=== PATIENT | female | born 1940 | race Caucasian/White ===

== ENCOUNTER 2019-10-08 16:05 | Inpatient (IN) | payer OTHER ==
--- NOTE | 2019-10-08 16:35 | PDOC ---
Rapid Medical Evaluation Time Seen by Provider: 10/08/19 16:32 Medical Evaluation: Allergies Allergy/AdvReac Type Severity Reaction Status Date / Time No Known Allergies Allergy Verified 10/08/19 16:30 10/08/19 16:34 I have performed a brief in-person evaluation of this patient. The patient presents with a chief complaint of:RUB w/ anorexia and ? sob. H/o NHL remotely Pertinent physical exam findings:Well jacinta, HR 100, afebrile I have ordered the following:ekg/cxr/labs/ua The patient will proceed to the ED for further evaluation. 10/08/19 16:36 Discharge Disposition - Diagnosis Abdominal pain Qualifiers: Abdominal location: right upper quadrant Qualified Code(s): R10.11 - Right upper quadrant pain - Referrals - Patient Instructions - Post Discharge Activity
--- NOTE | 2019-10-08 16:56 | PDOC ---
Attending Attestation - Resident Resident Name: Kimberlee Alcocerhan - ED Attending Attestation I have performed the following: I have examined & evaluated the patient, The case was reviewed & discussed with the resident, I agree w/resident's findings & plan, Exceptions are as noted - HPI HPI: 10/08/19 16:56 78y F hx of HL, non hodgekins lymphoma (in remission) presents with sharp, intermitent R flank pain. Pt woke up this mornig feeling ok, then noticed a sharp R flank pain that lasted for several hours. Notes the pain is improved currently. Denies any sob, cp, f/c, dysuria, frquency, numnbes/tingling/weakness, worsening with exertion, n/v, diarrhea, melena, bpr. NO associated numbness/tingling. never had this pain before. She also notes this pain seems worse when she lies down. On triage note, there was sob noted - pt notes that she sometimes feels sob that major attributes to her asthma, states she does not feel sob now and hadnt recently. exam GENERAL: The patient is awake, alert, and fully oriented, Nontoxic - in no acute distress. HEAD: Normocephalic, atraumatic. EYES: extraocular movements intact, sclera anicteric, conjunctiva clear. ENT: Normal voice, Moist mucous membranes. NECK: Normal range of motion, supple LUNGS: Breath sounds equal, clear to auscultation bilaterally. No wheezes, no rhonchi, no rales. HEART: Regular rate and rhythm, normal S1 and S2 without murmur, rub or gallop. ABDOMEN: Soft, nontender, No guarding, no rebound. No CVA tenderness EXTREMITIES: Normal range of motion, no edema. NEUROLOGICAL: No facial assymetry, Normal speech, PSYCH: Normal mood, normal affect. SKIN: Warm, Dry, normal turgor, Differential for the patient's symptoms is wide and includes possible kidney stones, gallstones, musculoskeletal pain No current abdominal tenderness, no rashes no CVA tenderness. Will obtain blood work, UA, will reassess Will obtain EKG to screen for outside chance of ACS 10/08/19 18:36 - Physicial Exam PE: 10/14/19 17:56 see above - Medical Decision Making 10/08/19 18:37 labs reviewed ua pending 10/08/19 19:00 ct pending signed out to overnight team to review results and dispo pt Heart Score/ECG Review - ECG Impressions Comment:: 10/08/19 17:27 Twelve-lead EKG was performed and reviewed by me. There is normal sinus rhythm with a normal rate. Rate of 89 The axis is normal. The intervals are normal. There is normal R wave progression There are no ST or T wave abnormalities. Impression: Normal twelve-lead EKG Discharge - Discharge Information Problems reviewed: Yes Clinical Impression/Diagnosis: Nephrolithiasis Abdominal pain Qualifiers: Abdominal location: right upper quadrant Qualified Code(s): R10.11 - Right upper quadrant pain Condition: Stable Disposition: HOME - Follow up/Referral - Patient Discharge Instructions - Post Discharge Activity
--- NOTE | 2019-10-08 17:11 | PDOC ---
History of Present Illness - General Chief Complaint: Pain Stated Complaint: RS ABD PAIN/ SOB Time Seen by Provider: 10/08/19 16:32 - History of Present Illness Initial Comments: Yolanda Joe is a 78 y/o female with PMH significant for Non-Hodgkin's Lymphoma (dx 7 years ago, not currently on treatment), HLD, asthma, presenting today with right sided abdominal and flank pain. Reports that this started earlier today. Sharp pain with no radiation. No fever/chills/nausea/vomiting. No diarrhea/dysuria. No chest pain. Pain is intermittent and not currently having pain at present. Reports mild shortness of breath intermittently which is her baseline with asthma. States that the hot weather is making it worse. Not currently short of breath in the ED. SurgHx: tubal ligation Past History - Medical History Allergies/Adverse Reactions: Allergies Allergy/AdvReac Type Severity Reaction Status Date / Time No Known Allergies Allergy Verified 10/08/19 16:30 Home Medications: Ambulatory Orders NK [No Known Home Medication] 10/08/19 Cancer: Yes (non Hodgkins lymph. @ 2013) COPD: No - Psycho-Social/Smoking History Smoking History: Former smoker Have you smoked in the past 12 months: No Information on smoking cessation initiated: No - Substance Abuse Hx (Audit-C & DAST Scrn) How often the patient has a drink containing alcohol: Never Score: In Men: 4 or > Positive; In Women: 3 or > Positive: 0 Screen Result (Pos requires Nsg. Audit-10AR): Negative In the last yr the pt used illegal drug/Rx for NonMed reason: No Score: Yes response is considered Positive: 0 Screen Result (Positive result requires Nsg. DAST-10): Negative Review of Systems - Review of Systems Comments:: GENERAL/CONSTITUTIONAL: No fever or chills. No weakness._ HEAD, EYES, EARS, NOSE AND THROAT: No change in vision. No change in hearing. No sore throat._ CARDIOVASCULAR: No chest pain or shortness of breath_ RESPIRATORY: Denies cough, hemoptysis_ GASTROINTESTINAL: Right abdominal and flank pain. No nausea, vomiting, diarrhea or constipation._ GENITOURINARY: No dysuria, frequency, or change in urination._ MUSCULOSKELETAL: No joint or muscle swelling or pain. No neck or back pain._ SKIN: No rash_ NEUROLOGIC: No headache, vertigo, loss of consciousness, or change in strength/sensation._ ENDOCRINE: No increased thirst. No abnormal weight change_ HEMATOLOGIC/LYMPHATIC: No anemia, easy bleeding, or history of blood clots._ ALLERGIC/IMMUNOLOGIC: No hives or skin allergy._ *Physical Exam - Vital Signs Last Vital Signs Temp Pulse Resp BP Pulse Ox 98 F 100 H 18 112/72 96 10/08/19 16:32 10/08/19 16:32 10/08/19 16:32 10/08/19 16:32 10/08/19 16:32 - Physical Exam GENERAL: Awake, alert, and oriented to person/place/time, in no acute distress_ HEAD: No signs of trauma, normocephalic, atraumatic _ EYES: PERRLA, EOMI, sclera anicteric, conjunctiva clear_ ENT: Hearing grossly normal, nares patent, oropharynx clear without exudates. No uvular deviation. Moist mucosa_ NECK: Normal ROM, supple, no lymphadenopathy, JVD, or masses_ LUNGS: No distress, speaks in full sentences, clear to auscultation bilaterally _ HEART: Regular rate and rhythm, normal S1 and S2, no murmurs appreciated, peripheral pulses normal and equal bilaterally._ ABDOMEN: Soft, obese, nontender, normoactive bowel sounds. No guarding, no rebound. No masses_ EXTREMITIES: Normal inspection, Normal range of motion, no edema. No clubbing or cyanosis_ NEUROLOGICAL: Cranial nerves II through XII grossly intact. Normal speech, normal gait, no focal sensorimotor deficits _ SKIN: Warm, Dry, normal turgor, no rashes or lesions noted_ ED Treatment Course - LABORATORY CBC & Chemistry Diagram: 10/08/19 16:54 10/08/19 16:54 Medical Decision Making - Medical Decision Making 10/08/19 17:10 78F hx of non hodgkin's, asthma, HLD, presenting with right abdominal/flank pain that started today. No fever/chills/infectious symptoms. No nausea/vomiting/diarrhea. -labs -cxr -ekg -trop -lipase 10/08/19 17:28 EKG shows NSR 89 bpm, normal axis, no ST elevation, QTc 469. 10/08/19 18:22 CXR negative for acute chest pathology. 10/08/19 18:36 Labs reviewed. Laboratory Last Values WBC 8.2 K/mm3 (4.0-10.0) 10/08/19 16:54 RBC 4.74 M/mm3 (3.60-5.2) 10/08/19 16:54 Hgb 14.2 GM/dL (10.7-15.3) 10/08/19 16:54 Hct 41.8 % (32.4-45.2) 10/08/19 16:54 MCV 88.1 fl (80-96) 10/08/19 16:54 MCH 29.8 pg (25.7-33.7) 10/08/19 16:54 MCHC 33.9 g/dl (32.0-36.0) 10/08/19 16:54 RDW 13.6 % (11.6-15.6) 10/08/19 16:54 Plt Count 246 K/MM3 (134-434) 10/08/19 16:54 MPV 8.2 fl (7.5-11.1) 10/08/19 16:54 Absolute Neuts (auto) 5.3 K/mm3 (1.5-8.0) 10/08/19 16:54 Neutrophils % 64.8 % (42.8-82.8) 10/08/19 16:54 Lymphocytes % 23.2 % (8-40) 10/08/19 16:54 Monocytes % 9.2 % (3.8-10.2) 10/08/19 16:54 Eosinophils % 1.9 % (0-4.5) 10/08/19 16:54 Basophils % 0.9 % (0-2.0) 10/08/19 16:54 Nucleated RBC % 0 % (0-0) 10/08/19 16:54 Sodium 141 mmol/L (136-145) 10/08/19 16:54 Potassium 4.3 mmol/L (3.5-5.1) 10/08/19 16:54 Chloride 108 mmol/L (98-107) H 10/08/19 16:54 Carbon Dioxide 27 mmol/L (21-32) 10/08/19 16:54 Anion Gap 6 MMOL/L (8-16) L 10/08/19 16:54 BUN 16.6 mg/dL (7-18) 10/08/19 16:54 Creatinine 0.8 mg/dL (0.55-1.3) 10/08/19 16:54 Est GFR (CKD-EPI)AfAm 82.42 10/08/19 16:54 Est GFR (CKD-EPI)NonAf 71.11 10/08/19 16:54 Random Glucose 106 mg/dL (74-106) 10/08/19 16:54 Calcium 9.1 mg/dL (8.5-10.1) 10/08/19 16:54 Total Bilirubin 1.1 mg/dL (0.2-1) H 10/08/19 16:54 AST 20 U/L (15-37) 10/08/19 16:54 ALT 25 U/L (13-61) 10/08/19 16:54 Alkaline Phosphatase 117 U/L (45-117) 10/08/19 16:54 Creatine Kinase 54 U/L (26-192) 10/08/19 16:54 Troponin I < 0.02 ng/ml (0.00-0.05) 10/08/19 16:54 Total Protein 7.4 g/dl (6.4-8.2) 10/08/19 16:54 Albumin 3.7 g/dl (3.4-5.0) 10/08/19 16:54 Lipase 53 U/L (73-393) L 10/08/19 16:54 D/w patient and family. Pt reports that the pain is improved at rest, but worsens when she lays down. Will obtain CT abd/pelv w/o IV contrast. 10/08/19 19:00 UA reviewed. Urine Test Results Urine Color [place] 10/08/19 18:52 Urine Appearance Turbid 10/08/19 18:52 Urine pH 5.0 (5.0-8.0) 10/08/19 18:52 Ur Specific [place] 1.016 (1.010-1.035) 10/08/19 18:52 Urine Protein 1+ (NEGATIVE) H 10/08/19 18:52 Urine Glucose (UA) Negative (NEGATIVE) 10/08/19 18:52 Urine Ketones Negative (NEGATIVE) 10/08/19 18:52 Urine Blood 3+ (NEGATIVE) H 10/08/19 18:52 Urine Nitrite Negative (NEGATIVE) 10/08/19 18:52 Urine Bilirubin Negative (NEGATIVE) 10/08/19 18:52 Ur Leukocyte Esterase Trace (NEGATIVE) 10/08/19 18:52 Pt s/o to Dr. Geiger. Discharge - Discharge Information Problems reviewed: Yes Clinical Impression/Diagnosis: Nephrolithiasis Abdominal pain Qualifiers: Abdominal location: right upper quadrant Qualified Code(s): R10.11 - Right upper quadrant pain Condition: Stable - Follow up/Referral - Patient Discharge Instructions - Post Discharge Activity
[2019-10-08 17:15] LABS: BASO % 0.9 % (0-2.0); EOS % 1.9 % (0-4.5); HEMATOCRIT 41.8 % (32.4-45.2); HEMOGLOBIN 14.2 GM/dL (10.7-15.3); LYMPH % 23.2 % (8-40); MCH 29.8 pg (25.7-33.7); MCHC 33.9 g/dl (32.0-36.0); MEAN CELL VOLUME 88.1 fl (80-96); MEAN PLT VOLUME 8.2 fl (7.5-11.1); MONO % 9.2 % (3.8-10.2); NEUT % 64.8 % (42.8-82.8); PLATELET COUNT 246 K/MM3 (134-434); RBC 4.74 M/mm3 (3.60-5.2); RDW 13.6 % (11.6-15.6); WHITE BLOOD COUNT 8.2 K/mm3 (4.0-10.0)
[2019-10-08 17:41] LABS: ALBUMIN 3.7 g/dl (3.4-5.0); ALK PHOS 117 U/L (45-117); ANION GAP 6 MMOL/L (8-16); BILIRUBIN,TOTAL 1.1 mg/dL (0.2-1); BLOOD UREA NITROGEN 16.6 mg/dL (7-18); CALCIUM 9.1 mg/dL (8.5-10.1); CHLORIDE 108 mmol/L (98-107); CO2 27 mmol/L (21-32); CREATININE 0.8 mg/dL (0.55-1.3); GLUCOSE,RANDOM 106 mg/dL (74-106); LIPASE 53 U/L (73-393); POTASSIUM 4.3 mmol/L (3.5-5.1); SGOT/AST 20 U/L (15-37); SGPT/ALT 25 U/L (13-61); SODIUM 141 mmol/L (136-145); TOT PROT 7.4 g/dl (6.4-8.2)
[2019-10-08] MEDS ORDERED: ACETAMINOPHEN 1000 MG/100 ML VIAL (NON FORMULARY) IVPB ONE (18:38)
[2019-10-08] MEDS ORDERED: ACETAMINOPHEN INJECTION 100 ML IVPB ONE (18:56)
[2019-10-08 19:17] LABS: EPI CELLS >36 /uL (0-25.1); HYALINE CASTS 3 /uL (0-3.1); URINE APPEARANCE TURBID; URINE BACTERIA 124 /uL (0-1359); URINE BILIRUBIN NEGATIVE (NEGATIVE); URINE COLOR ORANGE; URINE GLUCOSE (UA) NEGATIVE (NEGATIVE); URINE KETONE NEGATIVE (NEGATIVE); URINE LEUK ESTERASE TRACE (NEGATIVE); URINE NITRITE NEGATIVE (NEGATIVE); URINE PROTEIN 1+ (NEGATIVE); URINE RBC 737 /uL (0-23.9); URINE WBC 47 /uL (0-25.8)
[2019-10-08] MEDS ORDERED: CEFTRIAXONE 1 GM in DEXTROSE 5%-WATER - 50 ML IVPB ONE (19:25)
[2019-10-08] MEDS ORDERED: SODIUM CHLORIDE 0.9% 500 ML INFUS.BAG IV ONE (19:41)
--- NOTE | 2019-10-08 19:42 | PDOC ---
*Physical Exam - Vital Signs Last Vital Signs Temp Pulse Resp BP Pulse Ox 98 F 100 H 18 112/72 96 10/08/19 16:32 10/08/19 16:32 10/08/19 16:32 10/08/19 16:32 10/08/19 16:32 ED Treatment Course - LABORATORY CBC & Chemistry Diagram: 10/08/19 16:54 10/08/19 16:54 - ADDITIONAL ORDERS Additional order review: Laboratory Results 10/08/19 10/08/19 18:52 16:54 Sodium 141 Potassium 4.3 Chloride 108 H Carbon Dioxide 27 Anion Gap 6 L BUN 16.6 Creatinine 0.8 Est GFR (CKD-EPI)AfAm 82.42 Est GFR (CKD-EPI)NonAf 71.11 Random Glucose 106 Calcium 9.1 Total Bilirubin 1.1 H AST 20 ALT 25 Alkaline Phosphatase 117 Creatine Kinase 54 Troponin I < 0.02 Total Protein 7.4 Albumin 3.7 Lipase 53 L Urine Color [place] Urine Appearance Turbid Urine pH 5.0 Ur Specific [place] 1.016 Urine Protein 1+ H Urine Glucose (UA) Negative Urine Ketones Negative Urine Blood 3+ H Urine Nitrite Negative Urine Bilirubin Negative Urine Urobilinogen 1.0 Ur Leukocyte Esterase Trace Urine WBC (Auto) 47 Urine RBC (Auto) 737 Urine Casts (Auto) 3 U Epithel Cells (Auto) >36 Urine Bacteria (Auto) 124 10/08/19 16:54 RBC 4.74 MCV 88.1 MCHC 33.9 RDW 13.6 MPV 8.2 Neutrophils % 64.8 Lymphocytes % 23.2 Monocytes % 9.2 Eosinophils % 1.9 Basophils % 0.9 - Medications Given in the ED: ED Medications Discontinued Medications Generic Name Dose Route Start Last Admin Trade Name Negrita PRN Reason Stop Dose Admin Acetaminophen 1,000 mg 10/08/19 18:38 10/08/19 19:12 Ofirmev Injection - IVPB 10/08/19 18:39 1,000 mg ONCE ONE Administration Medical Decision Making - Medical Decision Making 10/08/19 19:40 I received pt on signout and she has flank pain. UA comes back with bacteria RBC, WBC, but no nitrites and no leuks. Pt has no fever and no WBC elevation She will be gong for spiral CT scan 10/08/19 20:51 Patient Name: ADONAY CABRERA THIS IS A PRELIMINARY REPORT FROM [facility] EXAM: CT abdomen and pelvis without contrast IMAGES:160 DATE OF EXAM: 2019-10-08 20:10:48 REASON FOR EXAM: Kidney stone COMPARISON: None Findings: Mild atelectasis and scarring in lung bases. 2 mm granuloma in the lingula. No pleural effusions. Small hiatal hernia. Hepatic steatosis. Distended gallbladder, usually from fasting state. Pancreatic atrophy. Adrenal glands and spleen are grossly unremarkable. *Bilateral perinephric edema and renal cortical scarring. 2 mm calculus at the right ureteropelvic junction with right-sided hydronephrosis. Superimposed bilateral parapelvic renal cysts. Punctate 1 mm left intrarenal calculi. No AAA. No evidence for diverticulitis, appendicitis, small bowel obstruction, free fluid, or free air. A few nonspecific enlarged right lower quadrant mesenteric lymph nodes 10/08/19 20:52 Pt has an obstructing stone with right hydronephrosis. She has perinephric edema and scarring. She will be admitted for eval by urology. 10/08/19 21:19 Pt and her daughter are in agreement with this plan Pt's PMD is Dr. Mansfield. Discharge - Discharge Information Problems reviewed: Yes Clinical Impression/Diagnosis: Abdominal pain Qualifiers: Abdominal location: right upper quadrant Qualified Code(s): R10.11 - Right upper quadrant pain - Follow up/Referral - Patient Discharge Instructions - Post Discharge Activity
[2019-10-08] MEDS ORDERED: CEFTRIAXONE 1 GM/50 ML BAG ONE (21:02)
[2019-10-08] MEDS ORDERED: TAMSULOSIN HCL 0.4 MG CAP PO ONE (21:02)
[2019-10-08] MEDS ORDERED: TAMSULOSIN HCL 0.4 MG CAP ONE (21:15)
--- NOTE | 2019-10-08 21:38 | PDOC ---
*Physical Exam - Vital Signs Last Vital Signs Temp Pulse Resp BP Pulse Ox 98 F 100 H 18 112/72 96 10/08/19 16:32 10/08/19 16:32 10/08/19 16:32 10/08/19 16:32 10/08/19 16:32 ED Treatment Course - LABORATORY CBC & Chemistry Diagram: 10/08/19 16:54 10/08/19 16:54 - ADDITIONAL ORDERS Additional order review: Laboratory Results 10/08/19 10/08/19 18:52 16:54 Sodium 141 Potassium 4.3 Chloride 108 H Carbon Dioxide 27 Anion Gap 6 L BUN 16.6 Creatinine 0.8 Est GFR (CKD-EPI)AfAm 82.42 Est GFR (CKD-EPI)NonAf 71.11 Random Glucose 106 Calcium 9.1 Total Bilirubin 1.1 H AST 20 ALT 25 Alkaline Phosphatase 117 Creatine Kinase 54 Troponin I < 0.02 Total Protein 7.4 Albumin 3.7 Lipase 53 L Urine Color [place] Urine Appearance Turbid Urine pH 5.0 Ur Specific [place] 1.016 Urine Protein 1+ H Urine Glucose (UA) Negative Urine Ketones Negative Urine Blood 3+ H Urine Nitrite Negative Urine Bilirubin Negative Urine Urobilinogen 1.0 Ur Leukocyte Esterase Trace Urine WBC (Auto) 47 Urine RBC (Auto) 737 Urine Casts (Auto) 3 U Epithel Cells (Auto) >36 Urine Bacteria (Auto) 124 10/08/19 16:54 RBC 4.74 MCV 88.1 MCHC 33.9 RDW 13.6 MPV 8.2 Neutrophils % 64.8 Lymphocytes % 23.2 Monocytes % 9.2 Eosinophils % 1.9 Basophils % 0.9 - RADIOLOGY Radiology Studies Ordered: Category Date Time Status SPIRAL- RENAL-STONE CT [CT] Stat CT Scan 10/08/19 19:26 Taken - Medications Given in the ED: ED Medications Discontinued Medications Generic Name Dose Route Start Last Admin Trade Name Freq PRN Reason Stop Dose Admin Acetaminophen 1,000 mg 10/08/19 18:38 10/08/19 19:12 Ofirmev Injection - IVPB 10/08/19 18:39 1,000 mg ONCE ONE Administration Ceftriaxone Sodium 1 gm/ 50 mls @ 100 mls/hr 10/08/19 19:25 10/08/19 21:29 Dextrose IVPB 10/08/19 19:54 100 mls/hr ONCE ONE Administration Sodium Chloride 500 ml 10/08/19 19:41 10/08/19 21:29 Normal Saline - IV 10/08/19 19:42 500 ml ONCE ONE Administration Tamsulosin HCl 0.4 mg 10/08/19 21:02 10/08/19 21:29 Flomax - PO 10/08/19 21:03 0.4 mg ONCE ONE Administration Medical Decision Making - Medical Decision Making Sign out was given by Dr. Alcocer. Patient was reassessed and in a stable condition CBC, CMP show no concerning problem. UA reavealed positive 3+ blood CT spiral scan for kidney stone revealed 2 mm stone, with right hydroneprosis. MBMD were initated. Waiting to talk to design center consultant. Decision to admit was initiated. Discharge - Discharge Information Problems reviewed: Yes Clinical Impression/Diagnosis: Abdominal pain Qualifiers: Abdominal location: right upper quadrant Qualified Code(s): R10.11 - Right upper quadrant pain Condition: Good - Admission Yes - Follow up/Referral - Patient Discharge Instructions - Post Discharge Activity
--- NOTE | 2019-10-08 22:23 | PN ---
Teaching Attending Note Name of Resident: Francisco Landers ATTENDING PHYSICIAN STATEMENT I saw and evaluated the patient. I reviewed the resident's note and discussed the case with the resident. I agree with the resident's findings and plan as documented. SUBJECTIVE: Patient is a 78 year old woman with a PMH of Non-Hodgkin's lymphoma (in remissi on), HLD and Asthma who presents with sharp, intermittent right flank pain. Patient woke up this morning feeling okay, then noticed a sharp right flank pain that lasted for several hours. Pain is improved subsequently. Denies any active SOB, chest pain, fever, chills, dysuria, frequency, numbness, tingling, weakness, hematochezia, diarrhea or melena. No history of similar pain in the past. She also notes this pain seems worse when she lies down. Denies alcohol, tobacco or illicit drug use. No sick contacts or recent travels. Family history is unremarkable. OBJECTIVE: Alert Vital Signs Period Temp Pulse Resp BP Sys/[place] Pulse Ox Last 24 Hr 98 F 100 18 112/72 96 HEENT: No Jaundice, eye redness or discharge, PERRLA, EOMI. Normocephalic, atraumatic. External ears are normal and hearing is grossly intact. No nasal discharge. Neck: Supple, nontender. No palpable adenopathy or thyromegaly. No JVD Chest: Good effort. Clear to auscultation and percussion. Heart: Regular. No S3, rub or murmur Abdomen: Not distended, soft, nontender and no HSM. No rebound or guarding. Normal bowel sounds. Ext: Peripheral pulses intact. No leg edema. Skin: Warm and dry. No petechiae, rash or ecchymosis. Neuro: Alert. Oriented x3. CN 2-12 grossly intact. Sensation grossly intact in all four extremities and DTR are symmetric. Psych: Appropriate mood and affect. Good insight. Home Medications Medication Instructions Recorded NK [No Known Home Medication] 10/08/19 Abnormal Lab Results 10/08/19 10/08/19 16:54 18:52 Chloride 108 H Anion Gap 6 L Total Bilirubin 1.1 H Lipase 53 L Urine Protein 1+ H Urine Blood 3+ H Current Medications Generic Name Dose Route Start Last Admin Trade Name Freq PRN Reason Stop Dose Admin Heparin Sodium (Porcine) 5,000 unit 10/09/19 10:00 Heparin - SQ BID [facility] Sodium Chloride 1,000 mls @ 50 mls/hr 10/09/19 02:15 Normal Saline - IV 10/10/19 02:19 ASDIR [facility] Ketorolac Tromethamine 15 mg 10/09/19 02:06 Toradol Injection - IVPUSH 10/14/19 02:05 Q8H PRN PAIN LEVEL 6-10 Morphine Sulfate 1 mg 10/09/19 02:06 Morphine Injection - IVPUSH Q4H PRN PAIN LEVEL 7 - 10 Tamsulosin HCl 0.4 mg 10/09/19 02:22 Flomax - PO 10/09/19 02:23 ONCE ONE ASSESSMENT AND PLAN: 1. Right kidney stone/Hydronephrosis - Noncontrast CT scan of abdomen/pelvis report - "Mild atelectasis and scarring in lung bases. 2 mm granuloma in the lingula. No pleural effusions. Small hiatal hernia. Hepatic steatosis. Distended gallbladder, usually from fasting state. Pancreatic atrophy. Adrenal glands and spleen are grossly unremarkable. *Bilateral perinephric edema and renal cortical scarring. 2 mm calculus at the right ureteropelvic junction with right-sided hydronephrosis. Superimposed bilateral parapelvic renal cysts. Punctate 1 mm left intrarenal calculi. No AAA. No evidence for diverticulitis, appendicitis, small bowel obstruction, free fluid, or free air. A few nonspecific enlarged right lower quadrant mesenteric lymph nodes". No acute abnormality on CXR and urine shows hematuria. Will keep her NPO, give IV NS, strain her urine, give Flomax, IV Ceftriaxone, consult Urology and refer to Nephrology for outpatient workup to search for stone disease risk factor. Use IV Ketorolac for pain control. Viral testing for COVID-19 ordered and patient placed on airborne, droplet and contact isolation. EKG shows NSR at 89/minute and QTc [address]-T wave changes. 2. Obesity Counseled on the risks associated with obesity. Will provide patient all the necessary assistance, counseling and positive reinforcement to f acilitate weight loss. Consult manager advanced. 3. DVT prophylaxis - SCD 4. Advance directives - Full code
[2019-10-09] MEDS ORDERED: MORPHINE SULFATE 2 MG/ML VIAL IVPUSH PRN (02:06)
[2019-10-09] MEDS ORDERED: KETOROLAC TROMETHAMINE 15 MG/ML VIAL IVPUSH PRN (02:06)
[2019-10-09] MEDS ORDERED: SODIUM CHLORIDE 1,000 ML IV SCH ×2 (02:15→08:54)
[2019-10-09] MEDS ORDERED: TAMSULOSIN HCL 0.4 MG CAP PO ONE (02:22)
[2019-10-09] MEDS ORDERED: TAMSULOSIN HCL 0.4 MG CAP ONE (05:24)
[2019-10-09 07:17] LABS: HEMATOCRIT 37.1 % (32.4-45.2); HEMOGLOBIN 12.4 GM/dL (10.7-15.3); MCH 29.4 pg (25.7-33.7); MCHC 33.5 g/dl (32.0-36.0); MEAN CELL VOLUME 87.6 fl (80-96); MEAN PLT VOLUME 8.1 fl (7.5-11.1); PLATELET COUNT 201 K/MM3 (134-434); RBC 4.23 M/mm3 (3.60-5.2); RDW 13.5 % (11.6-15.6); WHITE BLOOD COUNT 6.8 K/mm3 (4.0-10.0)
[2019-10-09 07:39] LABS: CALCIUM 8.4 mg/dL (8.5-10.1); MAGNESIUM 2.1 mg/dL (1.8-2.4); PHOSPHOROUS 3.4 mg/dL (2.5-4.9); POTASSIUM 3.7 mmol/L (3.5-5.1)
--- NOTE | 2019-10-09 07:58 | HP ---
CHIEF COMPLAINT: Right flank pain radiating to right groin with anorexia PCP: HISTORY OF PRESENT ILLNESS: 78 year old female patient with past medical history of non-hodgkin's lymphoma in remission, HLD, asthma, who presented to the ED with severe right flank pain and anorexia. The pain began in the morning with sudden onset, and the pain radiates from the right flank to the patient's groin. A U/A found 3+ blood, and a CT A/P found a 2 mm kidney stone with right sided hyrdonephrosis, and renal cortical scarring. After coming to the ED and getting medication, the patient reports that now the pain is significantly reduced with the pain medication, and that the pain is now mostly around her groin area, where before it was higher up in her right flank area. The patient denies nausea/vomiting, fever/chills, shortness of breath, and chest pain. Recent Travel: PAST MEDICAL HISTORY: non-hodgkin's lymphoma in remission, HLD, asthma PAST SURGICAL HISTORY: Social History: Smoking: Alcohol: Drugs: Allergies No Known Allergies Allergy (Verified 10/08/19 16:30) HOME MEDICATIONS: Home Medications Medication Instructions Recorded NK [No Known Home Medication] 10/08/19 REVIEW OF SYSTEMS CONSTITUTIONAL: Absent: fever, chills CARDIOVASCULAR: Absent: chest pain RESPIRATORY: Absent: shortness of breath GASTROINTESTINAL: Absent: abdominal pain, nausea, vomiting, diarrhea, constipation GENITOURINARY: flank pain that radiated to the groin previously, but now mostly groin-area pain Absent: PHYSICAL EXAMINATION Vital Signs - 24 hr 10/08/19 10/08/19 10/09/19 16:32 20:50 06:33 Temperature 98 F 98.6 F 98.3 F Pulse Rate 100 H Pulse Rate [ 66 84 Left Radial] Respiratory 18 19 16 Rate Blood Pressure 112/72 Blood Pressure 122/68 125/61 [Right Arm] O2 Sat by Pulse 96 99 97 Oximetry (%) GENERAL: Awake, alert, and fully oriented, in no acute distress. HEAD: Normal with no signs of trauma. EYES: Extraocular movements intact. No lid lag. EARS, NOSE, THROAT: Ears normal, nares patent, oropharynx clear without exudates. Moist mucous membranes. NECK: Normal range of motion, supple without lymphadenopathy, JVD, or masses. LUNGS: Breath sounds equal, clear to auscultation bilaterally. No wheezes, and no crackles. HEART: Systolic murmur heard best at right sternal border. Regular rate and rhythm, normal S1 and S2. ABDOMEN: Soft, mildly tender on right side to palpation, not distended, normoactive bowel sounds, no guarding, no rebound, no masses. MUSCULOSKELETAL: Normal range of motion at all joints. No bony deformities or tenderness. No CVA tenderness. UPPER EXTREMITIES: 2+ pulses, warm, well-perfused. No cyanosis. No clubbing. No peripheral edema. LOWER EXTREMITIES: 2+ pulses, warm, well-perfused. No calf tenderness. No peripheral edema. NEUROLOGICAL: Normal speech. Normal gait. PSYCHIATRIC: Cooperative. Good eye contact. Appropriate mood and affect. SKIN: Warm, dry, normal turgor, no rashes or lesions noted, normal capillary refill. Laboratory Results - last 24 hr 10/08/19 10/08/19 10/08/19 16:54 16:54 18:52 WBC 8.2 RBC 4.74 Hgb 14.2 Hct 41.8 MCV 88.1 MCH 29.8 MCHC 33.9 RDW 13.6 Plt Count 246 MPV 8.2 Absolute Neuts (auto) 5.3 Neutrophils % 64.8 Lymphocytes % 23.2 Monocytes % 9.2 Eosinophils % 1.9 Basophils % 0.9 Nucleated RBC % 0 Sodium 141 Potassium 4.3 Chloride 108 H Carbon Dioxide 27 Anion Gap 6 L BUN 16.6 Creatinine 0.8 Est GFR (CKD-EPI)AfAm 82.42 Est GFR (CKD-EPI)NonAf 71.11 Random Glucose 106 Calcium 9.1 Total Bilirubin 1.1 H AST 20 ALT 25 Alkaline Phosphatase 117 Creatine Kinase 54 Troponin I < 0.02 Total Protein 7.4 Albumin 3.7 Lipase 53 L Urine Color [place] Urine Appearance Turbid Urine pH 5.0 Ur Specific [place] 1.016 Urine Protein 1+ H Urine Glucose (UA) Negative Urine Ketones Negative Urine Blood 3+ H Urine Nitrite Negative Urine Bilirubin Negative Urine Urobilinogen 1.0 Ur Leukocyte Esterase Trace Urine WBC (Auto) 47 Urine RBC (Auto) 737 Urine Casts (Auto) 3 U Epithel Cells (Auto) >36 Urine Bacteria (Auto) 124 10/09/19 06:15 WBC 6.8 RBC 4.23 Hgb 12.4 Hct 37.1 MCV 87.6 MCH 29.4 MCHC 33.5 RDW 13.5 Plt Count 201 MPV 8.1 Absolute Neuts (auto) Neutrophils % Lymphocytes % Monocytes % Eosinophils % Basophils % Nucleated RBC % Sodium Potassium Chloride Carbon Dioxide Anion Gap BUN Creatinine Est GFR (CKD-EPI)AfAm Est GFR (CKD-EPI)NonAf Random Glucose Calcium Total Bilirubin AST ALT Alkaline Phosphatase Creatine Kinase Troponin I Total Protein Albumin Lipase Urine Color Urine Appearance Urine pH Ur Specific [place] Urine Protein Urine Glucose (UA) Urine Ketones Urine Blood Urine Nitrite Urine Bilirubin Urine Urobilinogen Ur Leukocyte Esterase Urine WBC (Auto) Urine RBC (Auto) Urine Casts (Auto) U Epithel Cells (Auto) Urine Bacteria (Auto) ASSESSMENT/PLAN: 78 year old female patient with past medical history of non-hodgkin's lymphoma in remission, HLD, asthma, who presented to the ED with severe right flank pain and anorexia. 1. Right Nephrolithiasis with Right Hydronephrosis - NPO - IV Fluids - IV Ketorolac - Flomax - Prophylactic IV Ceftriaxone due to the hydronephrosis - Urine strainer with goal of catching the stone and analysing it as an outpatient workup with Urology 2. Renal Cortical Scarring on CT A/P - Nephrology outpatient follow up about the renal cortical scarring 2. Obesity - Patient Access Specialist Consulted DVT PPx - SCDs FULL CODE Visit type - Emergency Visit Emergency Visit: Yes ED Registration Date: 10/08/19 Care time: The patient presented to the Emergency Department on the above date and was hospitalized for further evaluation of their emergent condition. - New Patient This patient is new to me today: Yes Date on this admission: 10/09/19 - Critical Care Critical Care patient: No ATTENDING PHYSICIAN STATEMENT I saw and evaluated the patient. I reviewed the resident's note and discussed the case with the resident. I agree with the resident's findings and plan as documented. SUBJECTIVE: OBJECTIVE: ASSESSMENT AND PLAN:
--- NOTE | 2019-10-09 08:37 | PN ---
Teaching Attending Note Name of Resident: La Pfeiffer ATTENDING PHYSICIAN STATEMENT I saw and evaluated the patient. I reviewed the resident's note and discussed the case with the resident. I agree with the resident's findings and plan as documented. SUBJECTIVE: Patient is feeling better with no acute distress, no nausea or vomiting. OBJECTIVE: Vital Signs Temperature 98.3 F 10/09/19 06:33 Pulse Rate 84 10/09/19 06:33 Respiratory Rate 16 10/09/19 06:33 Blood Pressure 125/61 10/09/19 06:33 O2 Sat by Pulse Oximetry (%) 97 10/09/19 06:33 PE: per resident's note CBCD WBC 6.8 K/mm3 (4.0-10.0) 10/09/19 06:15 RBC 4.23 M/mm3 (3.60-5.2) 10/09/19 06:15 Hgb 12.4 GM/dL (10.7-15.3) 10/09/19 06:15 Hct 37.1 % (32.4-45.2) 10/09/19 06:15 MCV 87.6 fl (80-96) 10/09/19 06:15 MCHC 33.5 g/dl (32.0-36.0) 10/09/19 06:15 RDW 13.5 % (11.6-15.6) 10/09/19 06:15 Plt Count 201 K/MM3 (134-434) 10/09/19 06:15 MPV 8.1 fl (7.5-11.1) 10/09/19 06:15 CMP Sodium 142 mmol/L (136-145) 10/09/19 06:15 Potassium 3.7 mmol/L (3.5-5.1) 10/09/19 06:15 Chloride 109 mmol/L (98-107) H 10/09/19 06:15 Carbon Dioxide 23 mmol/L (21-32) 10/09/19 06:15 Anion Gap 10 MMOL/L (8-16) 10/09/19 06:15 BUN 19.0 mg/dL (7-18) H 10/09/19 06:15 Creatinine 1.0 mg/dL (0.55-1.3) 10/09/19 06:15 Random Glucose 109 mg/dL (74-106) H 10/09/19 06:15 Calcium 8.4 mg/dL (8.5-10.1) L 10/09/19 06:15 Total Bilirubin 1.1 mg/dL (0.2-1) H 10/08/19 16:54 AST 20 U/L (15-37) 10/08/19 16:54 ALT 25 U/L (13-61) 10/08/19 16:54 Alkaline Phosphatase 117 U/L (45-117) 10/08/19 16:54 Total Protein 7.4 g/dl (6.4-8.2) 10/08/19 16:54 Albumin 3.7 g/dl (3.4-5.0) 10/08/19 16:54 CARDIAC ENZYMES Creatine Kinase 54 U/L (26-192) 10/08/19 16:54 Troponin I < 0.02 ng/ml (0.00-0.05) 10/08/19 16:54 Current Medications Generic Name Dose Route Start Last Admin Trade Name Freq PRN Reason Stop Dose Admin Sodium Chloride 1,000 mls @ 50 mls/hr 10/09/19 02:15 10/09/19 05:33 Normal Saline - IV 10/10/19 02:19 50 mls/hr ASDIR GAGE Administration Ketorolac Tromethamine 15 mg 10/09/19 02:06 Toradol Injection - IVPUSH 10/14/19 02:05 Q8H PRN PAIN LEVEL 6-10 Morphine Sulfate 1 mg 10/09/19 02:06 Morphine Sulfate IVPUSH Q4H PRN PAIN LEVEL 7 - 10 Home Medications Medication Instructions Recorded NK [No Known Home Medication] 10/08/[address] scan of abdomen/pelvis report - "Mild atelectasis and scarring in lung bases. 2 mm granuloma in the lingula. No pleural effusions. Small hiatal hernia. Hepatic steatosis. Distended gallbladder, usually from fasting state. Pancreatic atrophy. Adrenal glands and spleen are grossly unremarkable. *Bilateral perinephric edema and renal cortical scarring. 2 mm calculus at the right ureteropelvic junction with right-sided hydronephrosis. Superimposed bilateral parapelvic renal cysts. Punctate 1 mm left intrarenal calculi. No AAA. No evidence for diverticulitis, appendicitis, small bowel obstruction, free fluid, or free air. A few nonspecific enlarged right lower quadrant mesenteric lymph nodes". ASSESSMENT AND PLAN: This patient is 78yof with PMHx of non-hodgkin's lymphoma in remission, HLD, asthma, who presented to the ED with severe right flank pain and anorexia. #Acute right hydronephrosis: due to 2mm calculus at ureteropelvic junction , urology consult Dr Shakila hendricks, monitor creatinine pain control #BL parapelvic renal cysts DVT Px: heparin sq will repeat the US in am
[2019-10-09] MEDS ORDERED: HEPARIN NA (PORCINE) 5,000 UNITS/ML 1ML VIAL SQ SCH (10:00)
[2019-10-09] MEDS ORDERED: KETOROLAC TROMETHAMINE 15 MG/ML VIAL ONE (11:40)
--- NOTE | 2019-10-09 12:26 | CONSULT ---
Consult Consult Specialty:: UROLOGY Reason for Consultation:: Kidney stone - History of Present Illness Chief Complaint: 78 Y/O female patient with past medical history of non-hodgki n's lymphoma in remission, HLD, asthma, who presented to the ED with severe right flank pain and anorexia. The pain began in the morning with sudden onset, and the pain radiates from the right flank to the patient's groin. She denies any previous hx of stone, nocturia 2, frequency 5 no dysuria no gross hematuria. O/E soft lax abd no palpable bladder. mild tender Rt CVA. . A U/A found 3+ blood, and a CT-Scan 2 mm kidney stone with mild right sided hyrdonephrosis, and renal cortical scarring. WBC 6.8 HB 12.4. BUN 19. S.Creat 1.0 - Smoking History Smoking history: Former smoker Have you smoked in the past 12 months: No Home Medications - Allergies Allergies/Adverse Reactions: Allergies Allergy/AdvReac Type Severity Reaction Status Date / Time No Known Allergies Allergy Verified 10/08/19 16:30 - Home Medications Home Medications: Ambulatory Orders NK [No Known Home Medication] 10/08/19 Physical Exam Vital Signs: Vital Signs Temperature 98.3 F 10/09/19 06:33 Pulse Rate 84 10/09/19 06:33 Respiratory Rate 16 10/09/19 06:33 Blood Pressure 125/61 10/09/19 06:33 O2 Sat by Pulse Oximetry (%) 97 10/09/19 06:33 Labs: CBC, BMP 10/09/19 06:15 10/09/19 06:15 Assessment/Plan Rt Renal stone Plan: increase fluid intake IVF Flomax 0.4 mg Daily Ceftriaxone 1 gm daily will do Renal and pelvic U/S Tomorrow if still pain and hydro will do Rt laser and jj stent insertion
--- NOTE | 2019-10-09 15:38 | PN ---
Physical Exam: SUBJECTIVE: Patient seen and examined at bedside.states her pain is resolved. no acute complaints. denies n/v/d. denies dysuria OBJECTIVE: Vital Signs Period Temp Pulse Resp BP Sys/[place] Pulse Ox Last 24 Hr 98 F-98.6 F 66-100 16-19 112-125/61-72 96-99 GENERAL: The patient is awake, alert, and fully oriented, in no acute distress. LUNGS: Breath sounds equal, clear to auscultation bilaterally, no accessory muscle use. HEART: Regular rate and rhythm, S1, S2 + holosystolic murmur ABDOMEN: Soft, nontender, nondistended, normoactive bowel sounds, no guarding EXTREMITIES: 2+ pulses, warm, well-perfused, no edema. SKIN: Warm, dry, normal turgor, no rashes or lesions noted Laboratory Last Values WBC 6.8 K/mm3 (4.0-10.0) 10/09/19 06:15 RBC 4.23 M/mm3 (3.60-5.2) 10/09/19 06:15 Hgb 12.4 GM/dL (10.7-15.3) 10/09/19 06:15 Hct 37.1 % (32.4-45.2) 10/09/19 06:15 MCV 87.6 fl (80-96) 10/09/19 06:15 MCH 29.4 pg (25.7-33.7) 10/09/19 06:15 MCHC 33.5 g/dl (32.0-36.0) 10/09/19 06:15 RDW 13.5 % (11.6-15.6) 10/09/19 06:15 Plt Count 201 K/MM3 (134-434) 10/09/19 06:15 MPV 8.1 fl (7.5-11.1) 10/09/19 06:15 Absolute Neuts (auto) 5.3 K/mm3 (1.5-8.0) 10/08/19 16:54 Neutrophils % 64.8 % (42.8-82.8) 10/08/19 16:54 Lymphocytes % 23.2 % (8-40) 10/08/19 16:54 Monocytes % 9.2 % (3.8-10.2) 10/08/19 16:54 Eosinophils % 1.9 % (0-4.5) 10/08/19 16:54 Basophils % 0.9 % (0-2.0) 10/08/19 16:54 Nucleated RBC % 0 % (0-0) 10/08/19 16:54 Sodium 142 mmol/L (136-145) 10/09/19 06:15 Potassium 3.7 mmol/L (3.5-5.1) 10/09/19 06:15 Chloride 109 mmol/L (98-107) H 10/09/19 06:15 Carbon Dioxide 23 mmol/L (21-32) 10/09/19 06:15 Anion Gap 10 MMOL/L (8-16) 10/09/19 06:15 BUN 19.0 mg/dL (7-18) H 10/09/19 06:15 Creatinine 1.0 mg/dL (0.55-1.3) 10/09/19 06:15 Est GFR (CKD-EPI)AfAm 62.93 10/09/19 06:15 Est GFR (CKD-EPI)NonAf 54.30 10/09/19 06:15 Random Glucose 109 mg/dL (74-106) H 10/09/19 06:15 Calcium 8.4 mg/dL (8.5-10.1) L 10/09/19 06:15 Phosphorus 3.4 mg/dL (2.5-4.9) 10/09/19 06:15 Magnesium 2.1 mg/dL (1.8-2.4) 10/09/19 06:15 Total Bilirubin 1.1 mg/dL (0.2-1) H 10/08/19 16:54 AST 20 U/L (15-37) 10/08/19 16:54 ALT 25 U/L (13-61) 10/08/19 16:54 Alkaline Phosphatase 117 U/L (45-117) 10/08/19 16:54 Creatine Kinase 54 U/L (26-192) 10/08/19 16:54 Troponin I < 0.02 ng/ml (0.00-0.05) 10/08/19 16:54 Total Protein 7.4 g/dl (6.4-8.2) 10/08/19 16:54 Albumin 3.7 g/dl (3.4-5.0) 10/08/19 16:54 Lipase 53 U/L (73-393) L 10/08/19 16:54 Urine Color [place] 10/08/19 18:52 Urine Appearance Turbid 10/08/19 18:52 Urine pH 5.0 (5.0-8.0) 10/08/19 18:52 Ur Specific [place] 1.016 (1.010-1.035) 10/08/19 18:52 Urine Protein 1+ (NEGATIVE) H 10/08/19 18:52 Urine Glucose (UA) Negative (NEGATIVE) 10/08/19 18:52 Urine Ketones Negative (NEGATIVE) 10/08/19 18:52 Urine Blood 3+ (NEGATIVE) H 10/08/19 18:52 Urine Nitrite Negative (NEGATIVE) 10/08/19 18:52 Urine Bilirubin Negative (NEGATIVE) 10/08/19 18:52 Urine Urobilinogen 1.0 mg/dL (0.2-1.0) 10/08/19 18:52 Ur Leukocyte Esterase Trace (NEGATIVE) 10/08/19 18:52 Urine WBC (Auto) 47 /uL (0-25.8) 10/08/19 18:52 Urine RBC (Auto) 737 /uL (0-23.9) 10/08/19 18:52 Urine Casts (Auto) 3 /uL (0-3.1) 10/08/19 18:52 U Epithel Cells (Auto) >36 /uL (0-25.1) 10/08/19 18:52 Urine Bacteria (Auto) 124 /uL (0-1359) 10/08/19 18:52 Active Medications Generic Name Dose Route Start Last Admin Trade Name Freq PRN Reason Stop Dose Admin Sodium Chloride 1,000 mls @ 100 mls/hr 10/09/19 08:54 10/09/19 09:13 Normal Saline - IV 10/10/19 02:19 100 mls/hr ASDIR GAGE Administration Ketorolac Tromethamine 15 mg 10/09/19 02:06 10/09/19 11:44 Toradol Injection - IVPUSH 10/14/19 02:05 15 mg Q8H PRN Administration PAIN LEVEL 6-10 Morphine Sulfate 1 mg 10/09/19 02:06 Morphine Sulfate IVPUSH Q4H PRN PAIN LEVEL 7 - 10 ASSESSMENT/PLAN: 78 yo F with PMH of non-hodgkin's lymphoma ( remission), HLD, asthma, who p/w severe right flank pain. Pt is admitted for R nephrolithiasis w/ R hydronephrosis Right Nephrolithiasis with Right Hydronephrosis - c/w IVF - IV Ketorolac for pain - c/w Flomax -c/w IV Ceftriaxone -Urology consult - will do Renal and pelvic U/S Tomorrow to track improvement of hydronephrosis - if still pain and hydro will do Rt laser and jj stent insertion Obesity - Pastoral Ministries Professor Consulted DVT PPx - SCDs Visit type - Emergency Visit Emergency Visit: Yes ED Registration Date: 10/08/19 Care time: The patient presented to the Emergency Department on the above date and was hospitalized for further evaluation of their emergent condition. - New Patient This patient is new to me today: Yes Date on this admission: 10/09/19 - Critical Care Critical Care patient: No - Discharge Referral Referred to [facility] No ATTENDING PHYSICIAN STATEMENT I saw and evaluated the patient. I reviewed the resident's note and discussed the case with the resident. I agree with the resident's findings and plan as documented. SUBJECTIVE: OBJECTIVE: ASSESSMENT AND PLAN:
[2019-10-09] MEDS ORDERED: CEFTRIAXONE 1 GM in DEXTROSE 5%-WATER - 50 ML IVPB ONE (18:29)
[2019-10-09] MEDS ORDERED: CEFTRIAXONE 1 GM/50 ML BAG ONE (18:52)
[2019-10-09] MEDS ORDERED: ALBUTEROL SO4 0.083% IH SOL 2.5 MG/3 ML VIAL.NEB. NEB PRN (19:45)
[2019-10-09] MEDS ORDERED: ACETAMINOPHEN 325 MG TABLET (FP) ONE (22:20)
[2019-10-10] MEDS ORDERED: TAMSULOSIN HCL 0.4 MG CAP PO SCH (08:30)
--- NOTE | 2019-10-10 09:24 | EKG ---
Test Reason : Blood Pressure : / mmHG Vent. Rate : 089 BPM Atrial Rate : 089 BPM P-R Int : 144 ms QRS Dur : 090 ms QT Int : 386 ms P-R-T Axes : 070 -01 071 degrees QTc Int : 469 ms POOR DATA QUALITY, INTERPRETATION MAY BE ADVERSELY AFFECTED NORMAL SINUS RHYTHM NORMAL ECG NO PREVIOUS ECGS AVAILABLE Confirmed by Shawanda Ramirez ([id number]) on 10/10/2019 9:23:47 AM Referred By: Confirmed By:Shawanda Ramirez
[2019-10-10 10:51] VITALS: PULSE 96
[2019-10-10 12:14] VITALS: BMI 32.4
--- NOTE | 2019-10-10 15:16 | PN ---
Teaching Attending Note Name of Resident: Jarocho Shea ATTENDING PHYSICIAN STATEMENT I saw and evaluated the patient. I reviewed the resident's note and discussed the case with the resident. I agree with the resident's findings and plan as documented. SUBJECTIVE: Patient is feeling better with no acute distress. OBJECTIVE: Vital Signs Temperature 98.5 F 10/10/19 10:00 Pulse Rate 96 H 10/10/19 10:00 Respiratory Rate 20 10/10/19 10:00 Blood Pressure 147/74 10/10/19 10:00 O2 Sat by Pulse Oximetry (%) 97 10/10/19 10:00 PE: per resident's note NO CVA tenderness improved. no abdominal pain. CBCD WBC 6.8 K/mm3 (4.0-10.0) 10/09/19 06:15 RBC 4.23 M/mm3 (3.60-5.2) 10/09/19 06:15 Hgb 12.4 GM/dL (10.7-15.3) 10/09/19 06:15 Hct 37.1 % (32.4-45.2) 10/09/19 06:15 MCV 87.6 fl (80-96) 10/09/19 06:15 MCHC 33.5 g/dl (32.0-36.0) 10/09/19 06:15 RDW 13.5 % (11.6-15.6) 10/09/19 06:15 Plt Count 201 K/MM3 (134-434) 10/09/19 06:15 MPV 8.1 fl (7.5-11.1) 10/09/19 06:15 CMP Sodium 142 mmol/L (136-145) 10/09/19 06:15 Potassium 3.7 mmol/L (3.5-5.1) 10/09/19 06:15 Chloride 109 mmol/L (98-107) H 10/09/19 06:15 Carbon Dioxide 23 mmol/L (21-32) 10/09/19 06:15 Anion Gap 10 MMOL/L (8-16) 10/09/19 06:15 BUN 19.0 mg/dL (7-18) H 10/09/19 06:15 Creatinine 1.0 mg/dL (0.55-1.3) 10/09/19 06:15 Random Glucose 109 mg/dL (74-106) H 10/09/19 06:15 Calcium 8.4 mg/dL (8.5-10.1) L 10/09/19 06:15 Total Bilirubin 1.1 mg/dL (0.2-1) H 10/08/19 16:54 AST 20 U/L (15-37) 10/08/19 16:54 ALT 25 U/L (13-61) 10/08/19 16:54 Alkaline Phosphatase 117 U/L (45-117) 10/08/19 16:54 Total Protein 7.4 g/dl (6.4-8.2) 10/08/19 16:54 Albumin 3.7 g/dl (3.4-5.0) 10/08/19 16:54 CARDIAC ENZYMES Creatine Kinase 54 U/L (26-192) 10/08/19 16:54 Troponin I < 0.02 ng/ml (0.00-0.05) 10/08/19 16:[address] scan of abdomen/pelvis report - "Mild atelectasis and scarring in lung bases. 2 mm granuloma in the lingula. No pleural effusions. Small hiatal hernia. Hepatic steatosis. Distended gallbladder, usually from fasting state. Pancreatic atrophy. Adrenal glands and spleen are grossly unremarkable. *Bilateral perinephric edema and renal cortical scarring. 2 mm calculus at the right ureteropelvic junction with right-sided hydronephrosis. Superimposed bilateral parapelvic renal cysts. Punctate 1 mm left intrarenal calculi. No AAA. No evidence for diverticulitis, appendicitis, small bowel obstruction, free flui d, or free air. A few nonspecific enlarged right lower quadrant mesenteric lymph nodes". US of kidneys: nl kidneys , no evidence of hydronephrosis, or acute pathology ASSESSMENT AND PLAN: This patient is 78yof with PMHx of non-hodgkin's lymphoma in remission, HLD, asthma, who presented to the ED with severe right flank pain and anorexia. #Acute right hydronephrosis: resolved, repest US of the renal, no stones or hydro, most likely passed the stone. as per urology can sned patient home, and f/u iwth the office in a wekk period. will give her flomax 0.4mg x 1 week. follow upm with urologist in a week period with dr Jorje ashley. #BL parapelvic renal cysts
[2019-10-10 15:32] VITALS: BP 125/68; TEMP 98.1
--- NOTE | 2019-10-10 15:38 | DS ---
Physical Exam: SUBJECTIVE: Patient seen and examined. No complaints. OBJECTIVE: Vital Signs Period Temp Pulse Resp BP Sys/[place]aza Pulse Ox Last 24 Hr 98 F-98.7 F 77-100 18-20 125-147/64-79 96-98 PHYSICAL EXAM GENERAL: The patient is awake, alert, and fully oriented, in no acute distress. LUNGS: Breath sounds equal, clear to auscultation bilaterally, no accessory muscle use. HEART: Regular rate and rhythm, S1, S2 + holosystolic murmur ABDOMEN: Soft, nontender, nondistended, normoactive bowel sounds, no guarding EXTREMITIES: 2+ pulses, warm, well-perfused, no edema. SKIN: Warm, dry, normal turgor, no rashes or lesions noted LABS Laboratory Results - last 24 hr 10/10/19 10/10/19 06:47 12:11 POC Glucometer 112 96 Laboratory Last Values WBC 6.8 K/mm3 (4.0-10.0) 10/09/19 06:15 RBC 4.23 M/mm3 (3.60-5.2) 10/09/19 06:15 Hgb 12.4 GM/dL (10.7-15.3) 10/09/19 06:15 Hct 37.1 % (32.4-45.2) 10/09/19 06:15 MCV 87.6 fl (80-96) 10/09/19 06:15 MCH 29.4 pg (25.7-33.7) 10/09/19 06:15 MCHC 33.5 g/dl (32.0-36.0) 10/09/19 06:15 RDW 13.5 % (11.6-15.6) 10/09/19 06:15 Plt Count 201 K/MM3 (134-434) 10/09/19 06:15 MPV 8.1 fl (7.5-11.1) 10/09/19 06:15 Absolute Neuts (auto) 5.3 K/mm3 (1.5-8.0) 10/08/19 16:54 Neutrophils % 64.8 % (42.8-82.8) 10/08/19 16:54 Lymphocytes % 23.2 % (8-40) 10/08/19 16:54 Monocytes % 9.2 % (3.8-10.2) 10/08/19 16:54 Eosinophils % 1.9 % (0-4.5) 10/08/19 16:54 Basophils % 0.9 % (0-2.0) 10/08/19 16:54 Nucleated RBC % 0 % (0-0) 10/08/19 16:54 Sodium 142 mmol/L (136-145) 10/09/19 06:15 Potassium 3.7 mmol/L (3.5-5.1) 10/09/19 06:15 Chloride 109 mmol/L (98-107) H 10/09/19 06:15 Carbon Dioxide 23 mmol/L (21-32) 10/09/19 06:15 Anion Gap 10 MMOL/L (8-16) 10/09/19 06:15 BUN 19.0 mg/dL (7-18) H 10/09/19 06:15 Creatinine 1.0 mg/dL (0.55-1.3) 10/09/19 06:15 Est GFR (CKD-EPI)AfAm 62.93 10/09/19 06:15 Est GFR (CKD-EPI)NonAf 54.30 10/09/19 06:15 POC Glucometer 96 UNITS (80-120) 10/10/19 12:11 Random Glucose 109 mg/dL (74-106) H 10/09/19 06:15 Calcium 8.4 mg/dL (8.5-10.1) L 10/09/19 06:15 Phosphorus 3.4 mg/dL (2.5-4.9) 10/09/19 06:15 Magnesium 2.1 mg/dL (1.8-2.4) 10/09/19 06:15 Total Bilirubin 1.1 mg/dL (0.2-1) H 10/08/19 16:54 AST 20 U/L (15-37) 10/08/19 16:54 ALT 25 U/L (13-61) 10/08/19 16:54 Alkaline Phosphatase 117 U/L (45-117) 10/08/19 16:54 Creatine Kinase 54 U/L (26-192) 10/08/19 16:54 Troponin I < 0.02 ng/ml (0.00-0.05) 10/08/19 16:54 Total Protein 7.4 g/dl (6.4-8.2) 10/08/19 16:54 Albumin 3.7 g/dl (3.4-5.0) 10/08/19 16:54 Lipase 53 U/L (73-393) L 10/08/19 16:54 Urine Color [place] 10/08/19 18:52 Urine Appearance Turbid 10/08/19 18:52 Urine pH 5.0 (5.0-8.0) 10/08/19 18:52 Ur Specific [place] 1.016 (1.010-1.035) 10/08/19 18:52 Urine Protein 1+ (NEGATIVE) H 10/08/19 18:52 Urine Glucose (UA) Negative (NEGATIVE) 10/08/19 18:52 Urine Ketones Negative (NEGATIVE) 10/08/19 18:52 Urine Blood 3+ (NEGATIVE) H 10/08/19 18:52 Urine Nitrite Negative (NEGATIVE) 10/08/19 18:52 Urine Bilirubin Negative (NEGATIVE) 10/08/19 18:52 Urine Urobilinogen 1.0 mg/dL (0.2-1.0) 10/08/19 18:52 Ur Leukocyte Esterase Trace (NEGATIVE) 10/08/19 18:52 Urine WBC (Auto) 47 /uL (0-25.8) 10/08/19 18:52 Urine RBC (Auto) 737 /uL (0-23.9) 10/08/19 18:52 Urine Casts (Auto) 3 /uL (0-3.1) 10/08/19 18:52 U Epithel Cells (Auto) >36 /uL (0-25.1) 10/08/19 18:52 Urine Bacteria (Auto) 124 /uL (0-1359) 10/08/19 18:52 COVID-19 (VIV) Not detected (Not Detected) 10/08/19 22:25 HOSPITAL COURSE: 78 yo F with PMH of non-hodgkin's lymphoma ( remission), HLD, asthma, who p/w severe right flank pain. Pt is admitted for R nephrolithiasis w/ R hydronephrosis. CTAP showed Bilateral perinephric edema and renal cortical scarring. 2 mm calculus at the right ureteropelvic junction with right-sided hydronephrosis. Superimposed bilateral parapelvic renal cysts. Punctate 1 mm left intrarenal calculi. IV keterolac was given for pain & IV fluids and flomax were given. Follow-up ultrasound of kindeys showed no nml kidneys , no evidence of hydronephrosis, or acute pathology. Her pain resolved. As per urology, pt could be sent home. Pt's symptoms improved. Pt is stable for discharge. Date of Admission:10/08/[address] scan of abdomen/pelvis report - "Mild atelectasis and scarring in lung bases. 2 mm granuloma in the lingula. No pleural effusions. Small hiatal hernia. Hepatic steatosis. Distended gallbladder, usually from fasting state. Pancreatic atrophy. Adrenal glands and spleen are grossly unremarkable. *Bilateral perinephric edema and renal cortical scarring. 2 mm calculus at the right ureteropelvic junction with right-sided hydronephrosis. Superimposed bilateral parapelvic renal cysts. Punctate 1 mm left intrarenal calculi. No AAA. No evidence for diverticulitis, appendicitis, small bowel obstruction, free fluid, or free air. A few nonspecific enlarged right lower quadrant mesenteric l ymph nodes Date of Discharge: 10/10/19 Minutes to complete discharge: 45 Discharge Summary Problems reviewed: Yes Reason For Visit: HYDRONEPHROSIS,CALCULUS OF KIDNEY Current Active Problems Abdominal pain (Acute) Nephrolithiasis (Acute) Condition: Stable - Instructions Diet, Activity, Other Instructions: You came to the hospital for right sided abdominal and flank pain. Imaging of your abdomen showed kidney stones. You were given medication to help pass the kidney stone. You were also given antibiotics. Ultrasound of your abdomen showed that your kidneys are of normal size. You are stable for discharge. MEDICATIONS Please continue flomax 0.4mg daily Please continue your inhaler as needed FOLLOW-UP Please follow-up with primary care physician, at [facility] [place], for general health maintenance. Please follow-up with urologist, Dr. Jhaveri, regarding your kidney stone. Your appointment is on October 17 at 10 am Please continue with low salt, low fat, low sugar diet. Please drink more water. If you have new, worsening, or concerning symptoms please return to the ED or call 911. Referrals: [facility] [place] [Provider Group] - 1 Week Cassie Jhaveri MD [Staff Physician] - 10/18/19 10:00 am Disposition: HOME - Home Medications Comprehensive Discharge Medication List: Ambulatory Orders Albuterol 0.083% Nebulizer Ana [Ventolin 0.083% Nebulizer Soln -] 1 amp NEB Q4H PRN amp 10/10/19 Tamsulosin HCl [Flomax] 0.4 mg PO DAILY #7 cap.er.24h 10/10/19 This patient is new to me today: No Emergency Visit: Yes ED Registration Date: 10/08/19 Care time: The patient presented to the Emergency Department on the above date and was hospitalized for further evaluation of their emergent condition. Critical Care patient: No - Discharge Referral Referred to [facility] No ATTENDING PHYSICIAN STATEMENT I saw and evaluated the patient. I reviewed the resident's note and discussed the case with the resident. I agree with the resident's findings and plan as documented. SUBJECTIVE: OBJECTIVE: ASSESSMENT AND PLAN:
--- NOTE | 2019-10-11 17:58 | PN ---
DATE OF VISIT: DATE OF DICTATION: 10/10/2019 The patient is a 78-year-old female admitted with colic due to a right lower ureteral stone. Presently she is febrile. History obtained. A repeat renal sonogram revealed normal upper tract. No evidence of hydronephrosis or stone. Her urine on admission revealed 3+ blood, negative nitrates, pH of 5 and a specific gravity of 1016. Her T-max is 98.5. Blood pressure 147/74. Her white count was 6.8. Her BUN and creatinine were 19/1. IMPRESSION: Impression at present is, patient voiding well. Most likely passed stone. Will recommend a stone workup as an outpatient. Patient should be encouraged to consume 64 ounces of fluids per day and to strain her urine over the next 72 hours. Will follow in office. ZAHEER MICHELLE M.D. [id number]
== END 2019-10-10 16:27 | disposition home or self-care (01) | DRG 694 ==
LOC: JER 16:05 → JERBED 21:38 → J8W 10-10 00:09
PROVIDERS: ADMIT Internal Medicine; ATTEND Internal Medicine
DX: N13.2 Hydronephrosis with renal and ureteral calculous obstruction (principal); C85.90 Non-Hodgkin lymphoma, unspecified, unspecified site; Q61.02 Congenital multiple renal cysts; E78.5 Hyperlipidemia, unspecified; J45.909 Unspecified asthma, uncomplicated; E66.9 Obesity, unspecified; Z68.32 Body mass index [BMI] 32.0-32.9, adult; R10.11 Right upper quadrant pain
CPT/HCPCS: 36415; 71045-TC-FY; 74176-TC; 76775-TC; 80048; 80053; 81003; 82550; 82962; 83690; 83735; 84100; 84484; 85025; 85027; 93005; 93010; 99285-25; J0131; U0003

== ENCOUNTER 2024-01-24 10:58 | Emergency (ER) | payer OTHER ==
[2024-01-24 11:20] VITALS: BMI 29.9
[2024-01-24] MEDS: ONDANSETRON 4 MG/2 ML VIAL IVPUSH ONE (13:01)
[2024-01-24] MEDS: ACETAMINOPHEN 1000 MG/100 ML BAG IVPB ONE (13:01)
[2024-01-24 13:18] LABS: BASO % 0.7 % (0-2.0); EOS % 0.8 % (0-4.5); HEMATOCRIT 39.1 % (32.4-45.2); LYMPH % 15.2 % (8-40); MCH 28.8 pg (25.7-33.7); MCHC 33.1 g/dl (32.0-36.0); MEAN CELL VOLUME 86.8 fl (80-96); MEAN PLT VOLUME 7.6 fl (7.5-11.1); MONO % 6.4 % (3.8-10.2); NEUT % 76.9 % (42.8-82.8); PLATELET COUNT 242 10^3/uL (134-434); RBC 4.51 M/mm3 (3.60-5.2); RDW 13.7 % (11.6-15.6); WHITE BLOOD COUNT 11.6 K/mm3 (4.0-10.0)
[2024-01-24 13:23] LABS: INR 1.05 (0.83-1.09); PROTHROMBIN TIME (PATIENT) 11.9 SEC (9.7-13.0)
[2024-01-24 13:24] LABS: POTASSIUM 4.1 mmol/L (3.5-5.1)
[2024-01-24 13:25] LABS: ACTIVATED PTT 30.8 SECONDS (25.2-36.5)
[2024-01-24 13:27] LABS: CALCIUM 9.1 mg/dL (8.5-10.1)
[2024-01-24 13:28] LABS: ALBUMIN 3.6 g/dl (3.4-5.0); BLOOD UREA NITROGEN 18.4 mg/dL (7-18)
[2024-01-24 13:31] LABS: CREATININE 1.1 mg/dL (0.55-1.3)
[2024-01-24 13:32] LABS: BILIRUBIN,TOTAL 1.6 mg/dL (0.2-1)
[2024-01-24 13:33] LABS: TOT PROT 6.9 g/dl (6.4-8.2)
[2024-01-24 13:55] LABS: EPI CELLS 17 /uL (0-25.1); HYALINE CASTS 1 /uL (0-3.1); URINE APPEARANCE CLOUDY; URINE BACTERIA 28 /uL (0-1359); URINE BILIRUBIN NEGATIVE (NEGATIVE); URINE COLOR YELLOW; URINE GLUCOSE (UA) NEGATIVE (NEGATIVE); URINE KETONE 1+ (NEGATIVE); URINE LEUK ESTERASE TRACE (NEGATIVE); URINE NITRITE NEGATIVE (NEGATIVE); URINE PROTEIN TRACE (NEGATIVE); URINE RBC 461 /uL (0-23.9); URINE UROBILINOGEN 0.2 mg/dL (0.2-1.0); URINE WBC 69 /uL (0-25.8)
[2024-01-24] MEDS ORDERED: morphine SULFATE 4 MG/ML VIAL ONE (14:37)
[2024-01-24] MEDS: morphine CARPU-JECT 4 MG/1 ML DISP.SYRIN IVPUSH ONE (14:49)
[2024-01-24 15:29] VITALS: TEMP 97.8
[2024-01-24] MEDS: CEFTRIAXONE 1,000 MG in DEXTROSE 5%-WATER - 50 ML IVPB ONE (17:51)
[2024-01-24] MEDS ORDERED: TAMSULOSIN HCL 0.4 MG CAP ONE (18:00)
[2024-01-24 18:03] VITALS: BP 124/42; PULSE 82; RESP 17
[2024-01-24] MEDS: CEFPODOXIME PROXETIL 200 MG TABLET [NF] PO ONE (18:33)
[2024-01-24] MEDS: TAMSULOSIN HCL 0.4 MG CAP PO ONE (18:33)
== END 2024-01-24 18:47 | disposition home or self-care (01) ==
LOC: JER 10:58
PROC: 3E033NZ Introduction of Analgesics, Hypnotics, Sedatives into Peripheral Vein, Percutaneous Approach (ICD-10-PCS; principal; 2024-01-24)
PROC: 3E033NZ Introduction of Analgesics, Hypnotics, Sedatives into Peripheral Vein, Percutaneous Approach (ICD-10-PCS; 2024-01-24)
PROC: 3E033GC Introduction of Other Therapeutic Substance into Peripheral Vein, Percutaneous Approach (ICD-10-PCS; 2024-01-24)
DX: N20.1 Calculus of ureter (principal); R10.13 Epigastric pain; R11.2 Nausea with vomiting, unspecified
CPT/HCPCS: 36415; 74177-TC; 80053; 81003; 83690; 84484; 85025; 85610; 85730; 86850; 86900; 86901; 87086; 93005; 93010; 96374; 96375; 99285-25; J0131

== ENCOUNTER 2024-04-26 11:09 | Observation (INO) | payer OTHER ==
[2024-04-26 11:35] VITALS: BMI 32.3
[2024-04-26 12:34] LABS: BASO % 0.7 % (0-2.0); HEMATOCRIT 39.7 % (32.4-45.2); HEMOGLOBIN 13.2 GM/dL (10.7-15.3); LYMPH % 19.5 % (8-40); MCH 28.8 pg (25.7-33.7); MCHC 33.3 g/dl (32.0-36.0); MEAN CELL VOLUME 86.6 fl (80-96); MEAN PLT VOLUME 7.6 fl (7.5-11.1); MONO % 9.8 % (3.8-10.2); PLATELET COUNT 207 10^3/uL (134-434); RBC 4.59 M/mm3 (3.60-5.2); RDW 14.5 % (11.6-15.6)
[2024-04-26 12:52] LABS: POTASSIUM 4.5 mmol/L (3.5-5.1)
[2024-04-26 12:55] LABS: ALBUMIN 3.4 g/dl (3.4-5.0); BLOOD UREA NITROGEN 12.2 mg/dL (7-18); CALCIUM 8.9 mg/dL (8.5-10.1)
[2024-04-26 12:58] LABS: CREATININE 0.8 mg/dL (0.55-1.3)
[2024-04-26 13:00] LABS: BILIRUBIN,TOTAL 1.4 mg/dL (0.2-1); TOT PROT 6.8 g/dl (6.4-8.2)
[2024-04-26] MEDS ORDERED: ONDANSETRON 4 MG/2 ML VIAL IVPUSH PRN (16:03)
[2024-04-26] MEDS ORDERED: OSELTAMIVIR PHOSPHATE 75 MG CAPSULE ONE (16:47)
[2024-04-26] MEDS: OSELTAMIVIR PHOSPHATE 75 MG CAPSULE PO SCH (17:09)
[2024-04-26] MEDS: LACTATED RINGERS SOLUTION 1,000 ML/1,000 ML INFUS.BAG IV SCH (17:09)
[2024-04-26 17:15] LABS: N-TERMINAL BNP 731.3 pg/ml (5-450)
[2024-04-26] MEDS: ACETAMINOPHEN 500 MG TABLET (FP) PO PRN (18:43)
[2024-04-26] MEDS ORDERED: ACETAMINOPHEN 500 MG TABLET (FP) ONE (18:45)
[2024-04-26] MEDS ORDERED: HEPARIN NA (PORCINE) 5,000 UNITS/ML 1ML VIAL ONE (22:27)
[2024-04-26] MEDS: HEPARIN NA (PORCINE) 5,000 UNITS/ML 1ML VIAL SQ SCH (22:47)
[2024-04-27] MEDS ORDERED: ACETAMINOPHEN 500 MG TABLET (FP) ONE (06:33)
[2024-04-27 08:43] LABS: BASO % 0.6 % (0-2.0); EOS % 2.1 % (0-4.5); HEMATOCRIT 36.6 % (32.4-45.2); LYMPH % 34.9 % (8-40); MCH 28.7 pg (25.7-33.7); MCHC 32.8 g/dl (32.0-36.0); MEAN CELL VOLUME 87.4 fl (80-96); MEAN PLT VOLUME 7.8 fl (7.5-11.1); MONO % 13.9 % (3.8-10.2); NEUT % 48.5 % (42.8-82.8); PLATELET COUNT 189 10^3/uL (134-434); RBC 4.18 M/mm3 (3.60-5.2); RDW 14.1 % (11.6-15.6); WHITE BLOOD COUNT 6.3 K/mm3 (4.0-10.0)
[2024-04-27 08:53] LABS: POTASSIUM 3.7 mmol/L (3.5-5.1)
[2024-04-27 09:03] LABS: CALCIUM 8.4 mg/dL (8.5-10.1)
[2024-04-27 09:04] LABS: BLOOD UREA NITROGEN 12.5 mg/dL (7-18)
[2024-04-27 09:07] LABS: CREATININE 0.6 mg/dL (0.55-1.3)
[2024-04-27 09:58] VITALS: RESP 20
[2024-04-27] MEDS: SODIUM CHLORIDE 500 ML IV STA (13:18)
[2024-04-27 15:31] VITALS: BP 115/52; PULSE 89; TEMP 99
== END 2024-04-27 15:15 | disposition home or self-care (01) ==
LOC: JER 11:09 → JERBED 15:27
PROVIDERS: ADMIT Internal Medicine
PROC: 3E0337Z Introduction of Electrolytic and Water Balance Substance into Peripheral Vein, Percutaneous Approach (ICD-10-PCS; principal; 2024-04-26)
DX: J09.X2 Influenza due to identified novel influenza A virus with other respiratory manifestations (principal); I50.30 Unspecified diastolic (congestive) heart failure; R01.1 Cardiac murmur, unspecified; C85.8A Other specified types of non-Hodgkin lymphoma, in remission; R19.12 Hyperactive bowel sounds; I49.3 Ventricular premature depolarization; R93.89 Abnormal findings on diagnostic imaging of other specified body structures; R73.03 Prediabetes; E78.5 Hyperlipidemia, unspecified; Z87.891 Personal history of nicotine dependence
CPT/HCPCS: 0241U-QW; 36415; 71045-TC-FY; 71250-TC; 80048; 80053; 83880; 84484; 85025; 93005; 93010; 93306-TC; 96360; 96361; 97116-GP; 97162-GP; 99285-25; G0378; J1644